=== PATIENT | male | born 1990 | race Caucasian/White ===

== ENCOUNTER 2022-05-27 10:57 | Emergency (ER) | payer OTHER ==
[2022-05-27] MEDS ORDERED: Ketorolac 60 MG/2 ML SDV IM ONE (12:43)
[2022-05-27] MEDS ORDERED: Lidocaine 2% Viscous Solution 15 ML UD PO ONE (12:44)
[2022-05-27] MEDS ORDERED: Benzocaine 20% Topical Spray UD MUCMEM ONE (12:44)
== END 2022-05-27 13:45 | disposition home or self-care (01) ==
LOC: MW.ED 10:57
DX: K02.9 Dental caries, unspecified (principal)
CPT/HCPCS: 96372; 99282; A9270; J1885